=== PATIENT | male | born 1945 | race Caucasian/White ===

== ENCOUNTER 2020-11-02 18:32 | Emergency (ER) | payer OTHER ==
[~2020-11-02] VITALS: Ht 162.6 cm; Wt 75.0 kg
[2020-11-02 18:55] LABS: HEMATOCRIT 41.8 % (39.0-50.0); HEMOGLOBIN 13.2 g/dl (14.0-18.0); IMMATURE GRANULOCYTES 0.4 % (0.0-5.0); MEAN CELL VOLUME 86.9 fL CALC (80.0-100.0); MEAN CORPUSCULAR HGB 27.4 pG CALC (26.0-32.0); MEAN CORPUSCULAR HGB CONC 31.6 g/dL CAL (32.0-36.0); NEUT# 5.61 thou/uL (1.82-7.42); RED BLOOD COUNT 4.81 mill/uL (4.70-6.10); RED CELL DISTRI WIDTH 13.8 % (11.5-15.5)
[2020-11-02 18:59] LABS: GFR > 60 ML/MIN (>=60 (CALC)); GFR FOR AFR.AMER. > 60 ML/MIN (>=60 (CALC))
[2020-11-02 19:14] LABS: ACT PARTIAL THROMBO TIME 21.5 SECONDS (20.0-32.5); INTERNATIONAL NORMALIZED RATIO 1.1 RATIO (0.7-1.3)
[2020-11-02 19:15] LABS: ALBUMIN 4.1 g/dL (3.2-5.0); ALKALINE PHOSPHATASE 89 u/l (38-126); AMYLASE 100 u/l (30-110); ANION GAP 11 (6-22 (CALC)); BILIRUBIN, TOTAL 0.7 mg/dL (0.0-1.4); BUN 15 mg/dL (8-23); BUN/CREATININE RATIO 14 (12-20 (CALC)); CARBON DIOXIDE 28 mmol/l (22-30); CHLORIDE 104 mmol/l (95-108); CREATININE 1.1 mg/dL (0.7-1.3); ETHYL ALCOHOL 0 mg/dl (0-30); GFR > 60 ML/MIN (>=60 (CALC)); GFR FOR AFR.AMER. > 60 ML/MIN (>=60 (CALC)); LIPASE 127 u/l (23-300); POTASSIUM 4.2 mmol/l (3.5-5.1); SGOT/AST 26 u/l (19-48); SODIUM 138 mmol/l (137-146); TOTAL PROTEIN 7.1 g/dL (6.3-8.2)
[2020-11-02] MEDS ORDERED: CYCLOBENZAPRINE10 MG PO (20:45)
[2020-11-02] MEDS ORDERED: NAPROXEN500 MG PO (20:45)
[2020-11-02 20:55] VITALS: BP 177/105
== END 2020-11-02 21:00 | disposition home or self-care (01) | DRG 914 ==
LOC: ED 18:32
DX: S29.9XXA Unspecified injury of thorax, initial encounter (principal); S13.9XXA Sprain of joints and ligaments of unspecified parts of neck, initial encounter; S70.11XA Contusion of right thigh, initial encounter; S80.01XA Contusion of right knee, initial encounter; S80.11XA Contusion of right lower leg, initial encounter; I10 Essential (primary) hypertension; V49.40XA Driver injured in collision with unspecified motor vehicles in traffic accident, initial encounter
CPT/HCPCS: Q9967